=== PATIENT | female | born 1980 | race Two or more races ===

== ENCOUNTER 2019-03-11 20:54 | Emergency (ER) | payer MEDICAID ==
[~2019-03-11] VITALS: Ht 157.5 cm; Wt 70.3 kg
[2019-03-11 21:00] VITALS: BP 134/80
== END 2019-03-11 22:50 | disposition home or self-care (01) ==
LOC: ER 20:54
DX: J06.9 Acute upper respiratory infection, unspecified (principal); R51 Headache
CPT/HCPCS: 84703-TC

== ENCOUNTER 2021-12-05 09:02 | Emergency (ER) | payer MEDICAID ==
[~2021-12-05] VITALS: Ht 157.5 cm; Wt 61.2 kg
--- NOTE | 2021-12-05 09:13 | NUR ---
TO ER BED 19. NASAL CONGESTION, SORE THROAT SINCE WEDNESDAY. NEGATIVE COVID TEST YESTERDAY.
--- NOTE | 2021-12-05 09:22 | NUR ---
DR ALAS AT BEDSIDE FOR EVAL
--- NOTE | 2021-12-05 09:49 | NUR ---
Note diana in EDM - 12/05/21 at 0949 by FLO TO ER BED 19. NASAL CONGESTION, SORE THROAT SINCE WEDNESDAY. NEGATIVE COVID TEST YESTERDAY.
--- NOTE | 2021-12-05 09:58 | NUR ---
RAPID STREP TEST SWAB DONE AND SENT TO LAB
[2021-12-05] MEDS ORDERED: MAG355OR35 PO (11:30)
[2021-12-05] MEDS ORDERED: IBUP-1955 PO (11:30)
[2021-12-05 12:02] VITALS: BP 105/60
--- NOTE | 2021-12-05 12:02 | NUR ---
Patient discharged to home in stable condition. Written and verbal after care instructions given. Patient verbalizes understanding of instruction.
== END 2021-12-05 12:03 | disposition home or self-care (01) ==
LOC: ER 09:11
DX: J02.9 Acute pharyngitis, unspecified (principal)
CPT/HCPCS: 86403-TC; 87070-TC